=== PATIENT | female | born 1965 | race Caucasian/White ===

== ENCOUNTER 2022-03-20 06:55 | Outpatient (CLI) | payer BC ==
[2022-03-20] VITALS (18 sets, daily range): BP systolic 138–159; BP diastolic 79–107
== END 2022-03-20 23:59 | disposition home or self-care (01) ==
LOC: CARD DIAG 06:55
PROVIDERS: ATTEND Internal Medicine Interventional Cardiology
DX: R55 Syncope and collapse (principal)
CPT/HCPCS: 93660